=== PATIENT | male | born 1940 | race Caucasian/White ===

== ENCOUNTER 2021-08-22 21:03 | Emergency (ER) | payer MEDICARE ==
[2021-08-22 22:02] LABS: Platelet Count 114 10x3/uL (150-450)
[2021-08-22 22:03] LABS: Mean Corpuscular HGB CONC 33.1 g/dL (32.0-36.0); Mean Corpuscular Hemoglobin 27.2 pg (27.0-33.0); Mean Corpuscular Volume 82.2 fl (81.2-95.1); Mean Platelet Volume 10.2 fl (7.4-10.4); RBC Distribution Width 16.7 % (11.5-14.5); Red Blood Cell (RBC) Count 5.51 10x6/uL (4.32-5.72); White Blood Cell (WBC) Count 5.4 10x3/uL (3.5-10.5)
[2021-08-22 22:06] LABS: ALT (SGPT) 37 U/L (8-55); AST (SGOT) 28 U/L (5-34); Albumin 3.9 g/dL (3.4-4.8); Alkaline Phosphatase 83 U/L (40-110); Anion Gap 14 mmol/L (10-20); BUN (Urea Nitrogen) 24 mg/dL (8.4-25.7); Bilirubin, Total 1.1 mg/dL (0.2-1.2); Calc. Creatinine Clearance 0 mL/min (70-130); Calcium 8.7 mg/dL (7.8-10.44); Carbon Dioxide 24 mmol/L (23-31); Chloride 103 mmol/L (98-107); Estimated GFR 54; Globulin 2.5 g/dL (2.4-3.5); Glucose 100 mg/dL (83-110); Potassium 3.8 mmol/L (3.5-5.1); Protein, Total 6.4 g/dL (5.8-8.1); Sodium 137 mmol/L (136-145)
[2021-08-22 22:13] LABS: Platelet Morphology Comment Appears Decreased; RBC Morphology Normal
[2021-08-22 22:17] LABS: Eosinophils 2 % (0-10); Lymphocytes 24 % (21-51); Monocytes 34 % (0-10)
[2021-08-22 22:46] LABS: MDiff Complete? YES
[2021-08-22 22:47] LABS: Neutrophil 40 % (42-75)
[2021-08-22 23:19] LABS: Bilirubin Neg (Negative); Blood, Urine Negative (Negative); Clarity Clear (Clear); Glucose, Urine (Dipstick) Normal (Negative); Ketone, Urine Negative (Negative); Leukocyte Negative (Negative); Nitrite Negative (Negative); Protein, Urine (Dipstick) Negative (Neg-Trace); Specific Gravity, Urine 1.015 (1.002-1.036)
== END 2021-08-22 23:17 | disposition home or self-care (01) ==
LOC: CSHERS 21:03
DX: R68.89 Other general symptoms and signs (principal); R25.1 Tremor, unspecified; I25.10 Atherosclerotic heart disease of native coronary artery without angina pectoris; I10 Essential (primary) hypertension; E78.5 Hyperlipidemia, unspecified
CPT/HCPCS: 70450; 71045; 80053; 81003; 84484; 85025; 93005